=== PATIENT | female | born 2005 | race Caucasian/White ===

== ENCOUNTER 2024-09-01 12:01 | Outpatient (CLI) | payer BC, SELFPAY ==
[2024-09-01 19:09] LABS: Chlamydia DNA Amplified* NOT DETECTED (No Detected); GC DNA Amplified* NOT DETECTED (No Detected)
== END 2024-09-01 12:02 | disposition home or self-care (01) ==
LOC: NFLDREF 12:02
PROVIDERS: PCP Family Medicine; Visit Provider Physician Assistant
DX: Z11.3 Encounter for screening for infections with a predominantly sexual mode of transmission (principal)
CPT/HCPCS: 87491; 87591

== ENCOUNTER 2025-08-13 07:23 | Outpatient (CLI) | payer BC, SELFPAY ==
--- NOTE | 2025-08-13 07:15 | CRLHL7_ITS ---
For Patients: As a result of the Century Cures Act, medical imaging exams and procedure reports are released immediately into your electronic medical record. You may view this report before your referring provider. If you have questions, please contact your health care provider. CLINICAL HISTORY: Displacement of intrauterine contraceptive device. COMPARISON: None. TECHNIQUE: 2D williamson-scale and color Doppler images were acquired of the pelvis using a transvaginal approach. FINDINGS: On transvaginal imaging, the myometrium has a normal uniform echotexture. Uterus measures 6.2 x 3.5 x 5.0 cm. The endometrial lining appears normal and measures 3.7 mm in thickness. IUD is present in good position within the endometrial canal. The left ovary measures 3.5 x 2.4 x 3.6 cm in size and the right ovary measures 3.2 x 2.0 x 2.5 cm. The ovaries demonstrate normal arterial and venous blood flow on color Doppler analysis. There are no suspicious fluid collections within the cul-de-sac. Simple cyst left ovary measures 3.0 x 2.1 x 3.2 cm. IMPRESSION: Normal position of an IUD within the endometrial canal. Dictated by David Perla MD @ 08/13/2025 4:59:22 PM (Electronically Signed)
== END 2025-08-13 07:24 | disposition home or self-care (01) ==
PROVIDERS: PCP Family Medicine; Visit Provider Physician Assistant
DX: T83.32XA Displacement of intrauterine contraceptive device, initial encounter (principal); N83.202 Unspecified ovarian cyst, left side
CPT/HCPCS: 76830